=== PATIENT | male | born 1970 | race Caucasian/White ===

== ENCOUNTER 2019-01-19 08:58 | Outpatient (RCR) | payer OTHER | END 2019-04-11 | disposition home or self-care (01) | LOC: WSOH | DX: C81.90 Hodgkin lymphoma, unspecified, unspecified site (principal); M65.841 Other synovitis and tenosynovitis, right hand; F17.210 Nicotine dependence, cigarettes, uncomplicated; Y99.0 Civilian activity done for income or pay; Z98.890 Other specified postprocedural states ==